=== PATIENT | female | born 1950 | race Caucasian/White ===

== ENCOUNTER → 2017-05-02 | Outpatient (CLI) | payer BC ==
[~2017-05-02] MED LIST: CHOL20007 PO; CYAN100020 SL; LORA-741 PO; MAGNESIUM PO; MULT-506 PO; TRAM-10 PO
[2017-05-02 12:25] LABS: BASO % 0.7 %; BASO ABS # 0.03 K/uL (0-0.2); COMPLETE YES; EOS % 2.4 %; HEMATOCRIT 36.2 % (37-47); LYMPH % 34.4 %; LYMPH ABS # 1.46 K/uL (1.2-3.4); MEAN CELL VOLUME 79.4 fL (80-100); MEAN CORPUSCULAR HEMOGLOBIN 24.8 pg (25-34); MEAN CORPUSCULAR HGB CONC 31.2 g/dl (32-36); MEAN PLATELET VOLUME 9.3 fL (7.4-10.4); MONO % 8.7 %; NEUT % 53.8 %; PLATELET COUNT 319 K/uL (130-400); RED BLOOD COUNT 4.56 M/uL (4.2-5.4); WHITE BLOOD COUNT 4.24 K/uL (4.8-10.8)
[2017-05-02 12:48] LABS: ESTIMATED AVERAGE GLUCOSE 120 mg/dl; HA1C FLAG Normal (Normal)
[2017-05-02 13:18] LABS: CHOLESTEROL/HDL RATIO 3.7
== END | disposition home or self-care (01) ==
LOC: C.LABBFT 08:25
PROVIDERS: ATTEND Internal Medicine
DX: E53.8 Deficiency of other specified B group vitamins (principal); D72.819 Decreased white blood cell count, unspecified; E78.5 Hyperlipidemia, unspecified; R73.03 Prediabetes

== ENCOUNTER → 2017-05-10 | Outpatient (CLI) | payer BC, OTHER ==
--- NOTE | 2017-05-10 13:50 | MAMMOGRAPHY REPORT ---
BILATERAL DIGITAL SCREENING MAMMOGRAM WITH CAD: 05/10/2017 CLINICAL HISTORY: Routine screening. Patient has no complaints. TECHNIQUE: Current study was also evaluated with a Computer Aided Detection (CAD) system. Bilateral CC and MLO and XCCL views were obtained. COMPARISON: Comparison is made to exams dated: 03/20/2016 mammogram, 03/12/2014 mammogram, 03/18/2015 ma mmogram, 01/15/2013 mammogram, 01/15/2012 mammogram, and 01/10/2011 mammogram - [facility]. BREAST COMPOSITION: There are scattered areas of fibroglandular density in both breasts. FINDINGS: There is a new ill-defined focal asymmetry within the left upper inner quadrant posteriorl y, for which spot compression tomosynthesis views and possible breast ultrasound are recommended for further evaluation. The remainder of both breasts are stable compared to prior exams, without suspicious masses, calcific ations, or areas of architectural distortion noted. Scattered bilateral benign-appearing calcificati ons are stable. Oval circumscribed benign-appearing 4.5 cm mass in the right 9:00 breast is stable c ompared to multiple prior exams. IMPRESSION: ACR BI-RADS CATEGORY 0: INCOMPLETE EVALUATION: NEED ADDITIONAL IMAGING EVALUATION Left upper inner quadrant focal asymmetry, for which additional imaging evaluation is recommended. T he patient will be called to schedule an appointment. Approximately 10% of breast cancers are not detected with mammography. A negative mammographic report should not delay biopsy if a clinically suggestive mass is present. Zeinab Tijerina M.D. ah/:05/10/2017 10:00:41 Director Electrical Engineering: Mela HOLDEN(Kurt)(Pradeep)(NALLELY), [facility] letter sent: Addl Imaging 0 BI-RADS Code: ACR BI-RADS Category 0: Incomplete Evaluation: Need Additional Imaging Evaluation
== END | disposition home or self-care (01) ==
LOC: C.MAMM 08:43
PROVIDERS: ATTEND Obstetrics & Gynecology
DX: Z12.31 Encounter for screening mammogram for malignant neoplasm of breast (principal); N64.89 Other specified disorders of breast; M81.0 Age-related osteoporosis without current pathological fracture

== ENCOUNTER → 2017-05-22 | Outpatient (CLI) | payer BC ==
--- NOTE | 2017-05-22 15:59 | MAMMOGRAPHY REPORT ---
UNILATERAL LEFT DIGITAL DIAGNOSTIC MAMMOGRAM TOMOSYNTHESIS WITH CAD AND TARGETED LEFT ULTRASOUND: 05/05 CLINICAL HISTORY: 66-year-old woman with no family history of breast cancer, called back for a new fo aidan asymmetry in the upper inner posterior left breast. Patient denies trauma. TECHNIQUE: Spot compression left CC and MLO 2-D digital and tomosynthesis images were obtained. Afte r placement of a skin BB, full-field left CC and MLO 2-D images were obtained. COMPARISON: Comparison is made to exams dated: 05/10/2017 mammogram, 03/20/2016 mammogram, 03/18/2015 ma mmogram, 03/12/2014 mammogram, 01/15/2013 mammogram, and 01/15/2012 mammogram - [facility]. BREAST COMPOSITION: The tissue of the left breast is heterogeneously dense, which may obscure small masses. FINDINGS: The spot compression views of the left breast demonstrate persistence of a vague 2.2 x 1.0 x 0.8 cm focal asymmetry in the upper inner far posterior aspect of the breast. No associated archi tectural distortion or microcalcification. Further evaluation with ultrasound was performed. Targeted ultrasound was performed in the upper inner quadrant of the left breast. There is a vague h ypoechoic prominent fat lobule in the 10:30 left breast. Initially, no other discrete solid or cysti c mass was identified. Then the patient pointed out a lump she has had in the 11:00 left breast, tez roximately 15 cm from the nipple. While ultrasounding over this lump, an epidermal inclusion cyst is identified, partially collapsed with a prominent punctum extending to the skin surface. It measures 10.1 x 2.3 x 10.8 mm. A skin BB was placed over this epidermal inclusion cyst and repeat 2-D full-f ield left CC and MLO views were obtained. There is alignment of the BB with the focal asymmetry, con firming mammographicsonographic correlation and also confirming benignity. IMPRESSION: ACR BI-RADS CATEGORY 2: BENIGN, TARGETED ULTRASOUND ACR BI-RADS CATEGORY 2: BENIGN The 2.2 cm focal asymmetry in the upper inner far posterior left breast correlates with a benign epid ermal inclusion cyst. There is no mammographic or targeted sonographic evidence of malignancy. Dameon mmend follow-up at time of next annual screening mammogram. Approximately 10% of breast cancers are not detected with mammography. A negative mammographic report should not delay biopsy if a clinically suggestive mass is present. Amy Leblanc M.D. ay/:05/22/2017 13:29:33 Roof Tile Layer: Leandra GARRISON)(Pradeep), [facility] letter sent: Normal 1/2 BI-RADS Code: ACR BI-RADS Category 2: Benign Ultrasound BI-RADS: ACR BI-RADS Category 2: Benign
== END | disposition home or self-care (01) ==
LOC: C.MAMM 12:17
PROVIDERS: ATTEND Obstetrics & Gynecology
DX: N64.89 Other specified disorders of breast (principal)

== ENCOUNTER 2017-08-28 06:19 | Inpatient (IN) | payer BC, OTHER ==
[2017-07-30 09:24] VITALS: BMI 38.0
--- NOTE | 2017-07-30 09:51 | PAT Medication Instructions ---
Service Date Jul 30, 2017. Current Home Medication List Cholecalciferol (Vitamin D3), 5,000 UNITS PO QAM Cyanocobalamin (Vitamin B12), 1,000 MCG SL QAM Multivitamin (Multivitamin), 1 TAB PO QAM Tramadol (Ultram), 50 MG PO PRN [Magnesium], 250 MG PO PRN Medication Instructions For Your Scheduled Surgery - Hold the following medications the morning of surgery: Cholecalciferol (Vitamin D3), 5,000 UNITS PO QAM Cyanocobalamin (Vitamin B12), 1,000 MCG SL QAM Multivitamin (Multivitamin), 1 TAB PO QAM [Magnesium], 250 MG PO PRN - Take the following medications the morning of surgery with a sip of water OTHERWISE NOTHING TO EAT OR DRINK AFTER MIDNIGHT: Tramadol (Ultram), 50 MG PO PRN (may take if needed up to 4 hours prior to surgery) Tylenol (may take if needed up to 4 hours prior to surgery) - Take the following medications as scheduled the night before surgery: Tramadol (Ultram), 50 MG PO PRN Tylenol If you have any questions please call us at [phone] or [phone] or [phone]
--- NOTE | 2017-07-30 10:52 | DIAGNOSTIC IMAGING REPORT ---
CHEST PREADMISSION(PA/LAT) CLINICAL HISTORY: 67 years-old Female presenting with preoperative assessment. TECHNIQUE: PA and lateral views of the chest were obtained. COMPARISON: None. FINDINGS: Cardiomediastinal silhouette normal. Lungs and pleural spaces clear. Degenerative changes of the thoracic spine. Degenerative changes of the acromioclavicular joints. Upper abdomen normal. IMPRESSION: 1. No acute cardiopulmonary disease. Electronically signed by: Ravindra Cota M.D. 07/30/2017 10:51 AM Dictated Date/Time: 07/30/2017 10:50 AM
[2017-07-30 11:10] LABS: BASO % 0.4 %; BASO ABS # 0.02 K/uL (0-0.2); COMPLETE YES; EOS % 1.4 %; HEMATOCRIT 37.1 % (37-47); IG% 0.2 %; LYMPH % 32.9 %; LYMPH ABS # 1.66 K/uL (1.2-3.4); MEAN CELL VOLUME 79.3 fL (80-100); MEAN CORPUSCULAR HEMOGLOBIN 24.6 pg (25-34); MEAN PLATELET VOLUME 9.3 fL (7.4-10.4); MONO % 7.5 %; NEUT % 57.6 %; PLATELET COUNT 321 K/uL (130-400); RED BLOOD COUNT 4.68 M/uL (4.2-5.4); WHITE BLOOD COUNT 5.04 K/uL (4.8-10.8)
[2017-07-30 11:30] LABS: PROTHROMBIN TIME (PATIENT) 10.4 SECONDS (9.0-12.0)
[2017-07-30 11:52] LABS: BLOOD UREA NITROGEN 15 mg/dl (7-18); BUN/CREATININE RATIO 20.2 (10-20); C-REACTIVE PROTEIN < 0.29 mg/dl (0-0.29); CALCIUM 8.9 mg/dl (8.5-10.1); CARBON DIOXIDE 28 mmol/L (21-32); CHLORIDE 106 mmol/L (98-107); CREATININE 0.72 mg/dl (0.60-1.20); GLUCOSE 90 mg/dl (70-99); POTASSIUM 4.3 mmol/L (3.5-5.1); SODIUM 140 mmol/L (136-145)
--- NOTE | 2017-08-23 22:43 | HISTORY & PHYSICAL EXAMINATION ---
DATE OF ADMISSION: 08/28/2017 CHIEF COMPLAINT: Bilateral knee pain, left side greater than right. HISTORY OF PRESENT ILLNESS: This is a 67-year-old female who presents for surgical treatment of her left knee. She has got a long history of bilateral knee pain and discomfort, left side bit worse than the right. She has been followed by my partner Dr. Godinez for the past 7 years. She has had injections which do help temporarily, but become less effective over time. She got constant pain. The more she walks, the more it hurts. She has nighttime discomfort. She would now like to proceed with surgical treatment. PAST MEDICAL HISTORY: Significant for obesity status post gastric bypass surgery in 2005 with 100 pound weight loss with residual BMI of 38. PAST SURGICAL HISTORY: Include: 1. Gastric bypass surgery. 2. Hysterectomy. ALLERGIES: KEFLEX WHICH CAUSES A RASH. CURRENT MEDICINES: Include: 1. Vitamin D. 2. Multivitamin. 3. Magnesium. 4. Zocor. SOCIAL HISTORY: A 67-year-old white female. She is . Lives by herself. She does not smoke. FAMILY HISTORY: Noncontributory. REVIEW OF SYSTEMS: Significant for history of obesity status post gastric bypass surgery. Denies any bleeding. No history of DVT or PE. She does have a history of cellulitis back in early 1999, nothing since then. No DVT or PE. PHYSICAL EXAMINATION: GENERAL: Reveals a healthy pleasant 67-year-old female who looks to be in good health. HEENT: Benign. NECK: Supple, no lymphadenopathy. LUNGS: Clear to auscultation. HEART: Regular rate and rhythm. ABDOMEN: Soft, nontender, nondistended. EXTREMITIES: Grossly neurovascularly intact except as follows. Examination of both legs reveal patient ambulates independently. Fairly large soft tissue envelope. She does walk with a bit of a waddling antalgic gait. She does not quite straighten her knees when she walks. Examination of the left knee reveals a large soft tissue envelope. Minimal effusion. Range of motion is 10-110. No instability. No pain with hip motion. Examination of the right knee reveals a fairly neutral alignment. Minimal knee effusion. Range of motion is 10-110. X-RAYS: X-rays of both knees were reviewed. It shows advanced bilateral knee DJD. She has complete loss of her medial joint space on both sides. Advanced patellofemoral disease as well. Some mild diffuse osteopenia. ASSESSMENT: A 67-year-old female status post gastric bypass surgery with advanced bilateral knee pain and degenerative joint disease. She has failed conservative treatment and would like to have her left knee replaced. PLAN: We are going to take her to the operating room and do a left total knee replacement. The risks and benefits of the procedure were explained to the patient including but not limited to DVT, PE, , infection, neurological injury, vascular injury, bleeding problem, pain, limited range of motion, stiffness, failure to relieve symptoms, incomplete relief of symptoms, need for further surgery in the future, fracture, leg length inequality, nerve palsy, etc. The patient understands and desires to proceed. Informed consent was obtained. She does have this reaction to Keflex. We will give her vancomycin preoperatively. As far as discharge plans, she is planning to be discharged to [facility]. She will then go to home with home health after that.
[~2017-08-28] VITALS: Ht 167.6 cm; Wt 106.2 kg
[2017-08-28] VITALS (10 sets, daily range): BP systolic 116–168; BP diastolic 73–110; PULSE 62–82; TEMP 36.5–36.8; O2SAT 93–100; Ht 167.6 cm; Wt 106.2 kg
[~2017-08-28 06:19] MED LIST changes: +ACETAMINOPHEN 500 MG TAB PO SCH; +BUPIVACAINE LIPOSOME 266 MG, BUPIVACAINE/EPINEPHRINE INJ 50 ML, SODIUM CHLORIDE 0.9% PF... INFIL SCH; +FAMOTIDINE 20 MG TAB PO SCH; +GABAPENTIN 300 MG CAP PO SCH; +LACTATED RINGER'S 1000ML 1,000 ML IV SCH; +LACTATED RINGER'S 1000ML IV SCH; +LACTATED RINGER'S 500 ML IV SCH; -LORA-741 PO; +METOCLOPRAMIDE HCL 10 MG TAB PO SCH; +SCOPOLAMINE 1.5 MG TDSY TD SCH; +VANCOMYCIN INJ 1,500 MG in SODIUM CHLORIDE 0.9% 500ML 500 ML IV ONE
[2017-08-28] MEDS ORDERED: TRANEXAMIC ACID INJ 1,000 MG in SODIUM CHLORIDE 0.9% 100ML 100 ML IV SCH ×2 (06:30→18:00)
[2017-08-28] MEDS ORDERED: BUPIVACAINE 0.5 % 5 MG/1 ML PF 10ML VIAL ONE (06:31)
--- NOTE | 2017-08-28 06:53 | History & Physical Bridge Note ---
H&P Re-Evaluation Bridge Note: I have examined the patient, reviewed the History & Physical and in the interval since the performance of the History & Physical I have noted the following changes of clinical significance: No changes noted
[2017-08-28] MEDS ORDERED: ATROPINE SULFATE 0.1 MG/ML 5ML SYR IV PRN (07:30)
[2017-08-28] MEDS ORDERED: FENTANYL CITRATE INJ 50 MCG/1 ML 2 ML VIAL IV PRN (07:30)
[2017-08-28] MEDS ORDERED: EpHEDrine SULFATE INJ 50 MG/ML AMP IV PRN (07:30)
[2017-08-28] MEDS ORDERED: ONDANSETRON INJ 2 MG/ML 2 ML VIAL IV PRN ×2 (07:30→12:00)
[2017-08-28] MEDS ORDERED: FENTANYL CITRATE INJ 50 MCG/1 ML 2 ML VIAL ONE (08:19)
[2017-08-28] MEDS ORDERED: MIDAZOLAM HCL 1 MG/ML 2ML VIAL ONE (08:19)
[2017-08-28] MEDS ORDERED: BUPIVACAINE/EPINEPHRINE 0.25% 1:200,000 30 ML VIAL ONE (09:56)
[2017-08-28] MEDS ORDERED: BACITRACIN 50000 UNIT VIAL ONE (09:56)
[2017-08-28] MEDS ORDERED: SODIUM CHLORIDE 0.9% PF 50 ML VIAL ONE (09:56)
[2017-08-28] MEDS ORDERED: BUPIVACAINE LIPOSOME 1/3% 266 MG/20 ML VIAL INFIL ONE (09:56)
[2017-08-28] MEDS ORDERED: PROPOFOL IV EMULSION 10 MG/ML 20 ML VIAL IV ONE (10:46)
--- NOTE | 2017-08-28 11:56 | [facility] Post Operative Brief Note ---
Immediate Operative Summary Operative Date Aug 28, 2017. Pre-Operative Diagnosis Left Knee Advanced Degenerative Joint Disease Post-Operative Diagnosis Left Knee Advanced Degenerative Joint Disease Procedure(s) Performed Left Total Knee Arthroplasty Surgeon Dr. Shelton Sonar Technician Surgeon(s) VINOD Guzman Estimated Blood Loss 50ML Findings Left Knee DJD Fluids (cc crystalloids) 1650 cc Specimens A. Left Knee Bone and Tissue Drains None Anesthesia Spinal Complication(s) None Disposition Recovery Room / PACU
[2017-08-28] MEDS ORDERED: SILVER SULFADIAZINE 1% CR 50 GM JAR EXT PRN (12:00)
[2017-08-28] MEDS ORDERED: ZOLPIDEM TARTRATE 5 MG TAB PO PRN (12:00)
[2017-08-28] MEDS ORDERED: BISACODYL 10 MG SUPP PR PRN (12:00)
[2017-08-28] MEDS ORDERED: ALUMINUM/MAGNESIUM/SIMETH (MAALOX MAX) 30 ML UDC PO PRN (12:00)
[2017-08-28] MEDS ORDERED: NO NSAIDS SCH (12:00)
[2017-08-28] MEDS ORDERED: MAGNESIUM 250 MG PO SCH (12:00)
[2017-08-28] MEDS ORDERED: METOCLOPRAMIDE HCL INJ 5 MG/ML 2 ML VIAL IV PRN (12:00)
[2017-08-28] MEDS ORDERED: MAGNESIUM HYDROXIDE SUSP 30 ML UDC PO PRN (12:00)
[2017-08-28] MEDS ORDERED: HYDROmorphone INJ 0.5 MG/0.5 ML SYR IV PRN (12:00)
--- NOTE | 2017-08-28 12:43 | DIAGNOSTIC IMAGING REPORT ---
L KNEE 2 VIEWS ROUTINE CLINICAL HISTORY: Postop examination COMPARISON: None. DISCUSSION: There are postsurgical changes of a total left knee arthroplasty and patellar resurfacing. The femoral and tibial components appear well seated. Overlying surgical drains are evident. There is air within soft tissues consistent with history of recent surgery. IMPRESSION: Postsurgical changes of a total left knee arthroplasty. Electronically signed by: Sanford Munguia M.D. 08/28/2017 12:42 PM Dictated Date/Time: 08/28/2017 12:41 PM
--- NOTE | 2017-08-28 12:55 | OPERATIVE REPORT ---
DATE OF OPERATION: 08/28/2017 SURGEON: Gopal Shelton MD DIRECTOR OF CONTRACTS: VINOD Ngo. PREOPERATIVE DIAGNOSIS: Left knee degenerative joint disease. POSTOPERATIVE DIAGNOSIS: Same. PROCEDURE PERFORMED: Left cemented posterior stabilized total knee arthroplasty. COMPLICATIONS: None. ESTIMATED BLOOD LOSS: 50 mL. FLUID REPLACEMENT: 1650 mL crystalloid fluid replacement. ANESTHESIA: Spinal with adductor canal block. DRAINS: None. SPECIMENS: Left knee sent for pathology. OPERATIVE INDICATIONS: The patient is a 67-year-old female who has had a long history of bilateral knee pain and discomfort, left side a bit worse than the right. She has been through extensive conservative treatment by my partner Dr. Godinez for the past 7 years. This has become less successful over time. She did continue to be debilitated by her knee pain and elected to proceed with operative treatment. OPERATIVE FINDINGS: Operative findings revealed advanced left knee DJD. She had grade 4 disease most extensively in the medial and patellofemoral compartments. She also had some focal grade 4 changes laterally. A moderate sized joint effusion. Large soft tissue envelope. She did have diffuse osteopenia, likely related to her gastric bypass surgery. OPERATIVE IMPLANTS: Operative implants consisted of: 1. Biomet Vanguard size 70 left posterior stabilized femoral component. 2. Biomet size 71 tibial tray. 3. A 14 mm posterior stabilized polyethylene insert. 4. A 31 x 8 all poly patella. OPERATIVE PROCEDURE: The patient taken to the operating room, identified and placed on the operating table in supine position. All contact areas were appropriately padded. IV antibiotics were provided by anesthesia team. A spinal anesthetic and adductor canal block had been provided in the holding area. Sue catheter was placed in sterile fashion. Left thigh tourniquet was then placed and left lower extremity was then prepped and draped in the usual sterile fashion. Left leg was elevated and exsanguinated with Esmarch and tourniquet was placed at 300 mmHg. An anterior approach to the left knee was then performed through a longitudinal incision centered over the patella. Sharp dissection was carried through the subcutaneous tissues down to the level of the extensor mechanism. A medial parapatellar arthrotomy incision was made. Some subperiosteal dissection was carried out medially. The fat pad was resected from beneath the patellar tendon. Lateral patellofemoral ligament was released. The patella was everted and knee was flexed. The osteophytes were taken off the distal femur. The ACL and PCL were then released from the distal femur and the tibia subluxated anteriorly. The external tibial alignment jig was then placed in the anterior face of the tibia and adjusted 14 mm medially. Proximal tibial cut was made to remove about 3 mm of bone from the medial side. The tibia was sized to a size 71. Attention was then drawn to the femur. The distal femur was entered with a sharp drill. The intramedullary canal was suctioned. A left 5-degree valgus cutting guide was placed. Distal femoral cutting block was pinned in place. Distal femoral cut was made to take an additional 3 mm of bone off the distal femur. The distal femoral cut was made. The femur was then sized to a 70. We did downsize this slightly. The AP cutting block was pinned parallel to the epicondylar axis, which was 5 degrees of external rotation. The anterior cut, anterior chamfer, posterior cut, posterior chamfer cuts were made. The box guide was placed and adjusted slightly lateral and the box cut was made. There was just a slight bit of overhang. The knee was then flexed. The remnants of the medial and lateral menisci were excised. The osteophytes were taken off the posterior aspect of the femur. Trial femoral component was placed. Tibial tray was pinned in maximum external rotation and the drill and stem punch were used to create defect in proximal tibia for the tibial tray. The knee was then trialed and the 14 mm insert fit most appropriately. Attention was then drawn to the patella. The patella was cleaned of all soft tissues. Patella thickness measured 23 mm in thickness and was cut down to 14. It was sized to a size 31 patella. I did leave the patella little thick due to her osteoporosis. The lug holes were drilled for the patella component. The lateral osteophyte was removed. Patella button was placed and the knee was taken through range of motion and the patella tracked nicely with no thumbs test. Attention was then drawn toward placement of the permanent components. All trial components were removed. A bone plug was placed in the distal femur to limit blood loss. A double batch of Palacos G cement was mixed. A left size 70 posterior stabilized femoral component, size 71 tibial tray, a 14 mm posterior stabilized polyethylene insert, and a 31 x 8 all poly patella then cemented in place. Knee was brought out into full extension until cement hardened. A final cement check was then performed. Pericapsular tissues were injected with a total of 100 mL of a combination of 20 mL of Exparel, 30 mL normal saline, 50 mL of 0.25% Marcaine with epinephrine. The patient did receive 1 gram of tranexamic acid. The tourniquet was then let down for final tourniquet time of 56 minutes. Hemostasis was assured with use of electrocautery. The wound was once again irrigated. The extensor mechanism was then closed with a combination of #1 PDS suture and #1 Vicryl suture in a [id number] fashion. Extensor mechanism was checked and found to be intact. The subcutaneous tissues were then closed with 2-0 Dexon suture in a buried interrupted fashion. Skin was closed with skin domo. Leg was then cleaned and dried and a sterile dressing of Xeroform, 4 x 4, sterile cast padding and Clovis bandage were applied. The patient then transferred to the recovery room in stable condition. The patient tolerated the procedure well with no complications. All needle and sponge counts were correct at the end of the operation. I attest to the content of the Intraoperative Record and any orders documented therein. Any exception s are noted below.
[2017-08-28] MEDS: D5W AND 1/2NSS + 20MEQ KCL 1,000 ML IV SCH ×2 (13:59→22:24)
[2017-08-28] MEDS: ACETAMINOPHEN 500 MG TAB PO SCH ×2 (14:01→21:24)
[2017-08-28] MEDS: CHECK SCOPOLAMINE PATCH PLACEMENT SCH ×2 (16:00→23:44)
[2017-08-28] MEDS: OXYCODONE HCL IR 5 MG TAB (IMMEDIATE RELEASE) PO PRN ×2 (16:31→23:44)
[2017-08-28] MEDS: FERROUS GLUCONATE 324 MG TAB PO SCH (18:19)
[2017-08-28] MEDS ORDERED: VANCOMYCIN INJ 1,500 MG in SODIUM CHLORIDE 0.9% 250ML 250 ML IV SCH (19:00)
[2017-08-28] MEDS ORDERED: VANCOMYCIN INJ 1,500 MG in SODIUM CHLORIDE 0.9% 500ML 500 ML IV SCH (19:00)
--- NOTE | 2017-08-28 19:17 | Anesthesiology Progress Note ---
Anesthesia Post Op Note Date & Time Aug 28, 2017 at 19:17 Vital Signs Pain Intensity: 6.0 Vital Signs Past 12 Hours Date Time Temp Pulse Resp B/P (MAP) Pulse Ox O2 Delivery O2 Flow Rate FiO2 08/28/17 16:00 36.8 69 18 146/95 (112) 96 Room Air 08/28/17 15:17 Room Air 08/28/17 15:14 36.5 14 160/91 (114) 99 Room Air 08/28/17 15:13 99 Room Air 08/28/17 15:01 36.5 62 16 130/88 (102) 99 Room Air 08/28/17 14:09 82 14 143/80 (101) 100 Room Air 08/28/17 13:30 71 16 149/97 (114) 96 Nasal Cannula 2.0 08/28/17 12:40 36.9 75 16 140/80 97 Room Air 08/28/17 12:30 36.9 69 16 130/82 98 Room Air 08/28/17 12:20 69 16 141/83 98 Room Air 08/28/17 12:10 76 12 120/86 98 Room Air 08/28/17 12:02 36.8 80 12 134/78 98 Room Air Notes Mental Status: alert / awake / arousable, participated in evaluation Pt Amnestic to Procedure: Yes Nausea / Vomiting: adequately controlled Pain: adequately controlled Airway Patency, RR, SpO2: stable & adequate BP & HR: stable & adequate Hydration State: stable & adequate Neuraxial Anesthesia: was administered, sensory block is resolving Anesthetic Complications: no major complications apparent
[2017-08-28] MEDS: ASPIRIN 325 MG ECTAB PO SCH (21:00)
[2017-08-28] MEDS: TAPENTADOL ER 50 MG TABCR PO SCH (21:23)
[2017-08-28] MEDS: SENNA 8.6 MG TAB PO SCH (21:23)
[2017-08-28] MEDS: DOCUSATE SODIUM 100 MG CAP PO SCH (21:23)
[2017-08-29] VITALS: O2SAT 99
[2017-08-29] MEDS: D5W AND 1/2NSS + 20MEQ KCL 1,000 ML IV SCH ×2 (02:28→08:55)
[2017-08-29 03:05] VITALS: BP 108/70; PULSE 71; TEMP 36.8; O2SAT 97
[2017-08-29] MEDS: ACETAMINOPHEN 500 MG TAB PO SCH ×3 (06:00→21:19)
[2017-08-29 06:06] LABS: HEMATOCRIT 29.9 % (37-47); MEAN CELL VOLUME 78.7 fL (80-100); MEAN CORPUSCULAR HEMOGLOBIN 23.7 pg (25-34); MEAN CORPUSCULAR HGB CONC 30.1 g/dl (32-36); MEAN PLATELET VOLUME 9.1 fL (7.4-10.4); PLATELET COUNT 225 K/uL (130-400)
[2017-08-29 06:31] LABS: CREATININE 0.69 mg/dl (0.60-1.20)
[2017-08-29 06:32] LABS: BUN/CREATININE RATIO 12.3 (10-20); CALCIUM 7.9 mg/dl (8.5-10.1)
[2017-08-29 07:51] VITALS: BP 135/83; PULSE 70; TEMP 36.8; O2SAT 97
[2017-08-29] MEDS: DOCUSATE SODIUM 100 MG CAP PO SCH ×2 (08:56→21:18)
[2017-08-29] MEDS: FERROUS GLUCONATE 324 MG TAB PO SCH ×3 (08:56→18:16)
[2017-08-29] MEDS: ASPIRIN 325 MG ECTAB PO SCH (08:56)
[2017-08-29] MEDS: MULTIVITAMIN TAB PO SCH (08:57)
[2017-08-29] MEDS: PANTOprazole SOD 40 MG TAB PO SCH (08:57)
[2017-08-29] MEDS: CYANOCOBALAMIN 500 MCG TAB (VIT B-12) PO SCH (08:57)
[2017-08-29] MEDS: CHOLECALCIFEROL 1000 INTER.UNIT TAB PO SCH (08:58)
[2017-08-29] MEDS: TAPENTADOL ER 50 MG TABCR PO SCH ×2 (08:59→21:18)
[2017-08-29] MEDS: CHECK SCOPOLAMINE PATCH PLACEMENT SCH ×2 (09:00→16:00)
[2017-08-29] MEDS ORDERED: MULTIVITAMIN TAB PO SCH (09:00)
[2017-08-29] MEDS: OXYCODONE HCL IR 5 MG TAB (IMMEDIATE RELEASE) PO PRN ×2 (09:09→18:18)
[2017-08-29 11:10] VITALS: BP 124/80; PULSE 70; TEMP 37.1; O2SAT 98
[2017-08-29 15:18] VITALS: BP 120/71; PULSE 81; TEMP 37.3; O2SAT 93
[2017-08-29] MEDS ORDERED: TRAM-10 PO (18:06)
[2017-08-29] MEDS ORDERED: ACET-24 PO (18:06)
[2017-08-29] MEDS ORDERED: FRRG PO (18:06)
[2017-08-29] MEDS ORDERED: XRL10 PO (18:06)
--- NOTE | 2017-08-29 18:08 | Discharge Instructions ---
Discharge Instructions Date of Service Aug 29, 2017. Admission Reason for Admission: Left Knee Degenerative Joint Disease Discharge Discharge Diagnosis / Problem: Left Knee Replacement Discharge Goals Goal(s): Decrease discomfort, Improve function, Increase independence, Improve disease control, Therapeutic intervention Activity Recommendations Activity Level: Assistance Required Therapies: Physical Therapy, Occupational Therapy Weightbearing Status: Left weightbearing . Additional Information Patient informed of condition: Yes Advance Directives: Yes DNR: No Level of Care: Skilled Communicable Disease: No Prognosis: Improving Instructions / Follow-Up Instructions / Follow-Up ACTIVITY RECOMMENDATIONS: Physical Therapy: * You will go to physical therapy three times each week for four to six weeks after your surgery in order to regain your knee range of motion and to retrain your knee to work properly. * It is just as important to make sure you are getting your knee perfectly straight as it is to regain your knee bend. * Taking a pain pill an hour before therapy can help you have a more productive and comfortable therapy session. Home Exercise: * You were shown a series of exercises (heel props, heel slides, etc.) in the hospital. Do these exercises three to four times each day including the exercises you were shown in physical therapy. Walking: * Get up and walk several times each day. For the first four weeks, try not to stand or walk for more than one hour at a time. If you do stand or walk for more than one hour, you will not hurt anything, but your knee and leg will likely swell. * As you feel comfortable, you may change from the walker or crutches to a cane and then to independent walking. MEDICATIONS: New Medicine: * You will likely be taking one or more of these medications: 1. Tramadol - A quick and shorter-acting pain medication. Take one to two tablets every four to six hours to lessen your pain. 2. Iron Sulfate - Take three times each day for the month after surgery to help you replace the blood lost during surgery. 3. Xarelto - Thins your blood to lessen the chance of forming a blood clot. * The most common side effects of pain medicine and iron are nausea and constipation. If nausea or constipation is too much of a problem or if you have any questions about your new medicines or doses, call [facility] at . We will try to help you manage these issues. VERY IMPORTANT TO READ AND REVIEW" Pain: * The immediate post-operative period after knee replacement surgery is often quite painful. * You are given a prescription for pain medicine. You should take it, as directed, when you need it, especially before physical therapy and before going to bed. Pain that interferes with sleep is very common and can last several months. * You will likely need pain medicine for the first four to six weeks. It will not stop all of the pain. The pain will lessen and as you feel better, you may change to milder pain medicine such as Tylenol. * The most common side effects of pain medicine are nausea and constipation, so don't take more than you need. SPECIAL CARE INSTRUCTIONS: TEDs/Elastic Stockings: * The white elastic stockings help limit swelling and prevent blood clots from forming in your legs. The more you wear them, the more they work. * Wear them for six weeks after knee replacement surgery and four weeks after partial knee replacement. Prevention of Infection: * Take antibiotics one hour before any dental cleaning, dental work, urological procedure, gastrointestinal procedure or any invasive surgery in order to prevent your new joint from getting infected. * You may get the antibiotics from the doctor performing the procedure or you may call our office at before and we will call in a prescription to the pharmacy of your choice. Things to Watch For: * Drainage from the incision site that occurs more than one week after your surgery. * Severely increased knee/leg pain or swelling. * Increased redness at the incision site. * Fever above 102 degrees Fahrenheit. * Unusual chest pain or shortness of breath. * Unusual pain or burning with urination. Call [facility] at with any of the above problems or if you have any questions about your medicines or recovery. FOLLOW UP VISIT: Make an appointment to see your doctor for approximately two weeks after surgery for a progress check and staple removal by calling the office at . Current Hospital Diet Patient's current hospital diet: Regular Diet Discharge Diet Recommended Diet: Regular Diet Procedures Procedures Performed: Left Total Knee Arthroplasty Pending Studies Studies pending at discharge: no Medical Emergencies . Who to Call and When: Medical Emergencies: If at any time you feel your situation is an emergency, please call [phone] immediately. . Non-Emergent Contact Non-Emergency issues call your: Surgeon . . "Provider Documentation" section prepared by Gopal Shelton. . Core Measure Problem Core Measures: None
--- NOTE | 2017-08-29 18:10 | PROGRESS NOTE ---
DATE: 08/29/2017 SUBJECTIVE: A 67-year-old white female, postop day #1 from left knee replacement. Pretty tough morning but doing better now. Lot of kind of quad pain initially. No chest pain or shortness of breath. Not feeling dizzy or lightheaded. In much better spirits now. OBJECTIVE: VITAL SIGNS: Temperature 37.3. Vital signs stable. PHYSICAL EXAMINATION: GENERAL: This is a pleasant elderly female. She is sitting up in bed and looks pretty comfortable. EXTREMITIES: Examination of the left leg reveals the leg to be well aligned. Dressing is clean, dry and intact. She can dorsiflex and plantarflex her foot appropriately. She is neurologically intact. LABORATORY DATA: Hemoglobin 9.0. Hematocrit 29.9. Electrolytes are stable. ASSESSMENT: A 67-year-old white female, postop day #1 from left total knee replacement. She is doing pretty well. Pain is under better control. She did have gastric bypass surgery and really does want to take aspirin. We talked previously about taking Xarelto. PLAN: 1. DVT prophylaxis including thigh-high TEDs, SCDs, will stop the aspirin and use Xarelto. 2. PT/OT. She can weightbear as tolerated. Left total knee protocol. 3. Pain control, doing better with current pain regimen. 4. Disposition: Plan to discharge her to the [facility] once medically stable.
[2017-08-29] MEDS: SENNA 8.6 MG TAB PO SCH (21:18)
[2017-08-29 23:54] VITALS: BP 132/75; PULSE 82; TEMP 36.9; O2SAT 95
[2017-08-30] MEDS: OXYCODONE HCL IR 5 MG TAB (IMMEDIATE RELEASE) PO PRN ×2 (05:36→12:18)
[2017-08-30] MEDS: ACETAMINOPHEN 500 MG TAB PO SCH ×2 (05:36→13:54)
[2017-08-30] MEDS: FERROUS GLUCONATE 324 MG TAB PO SCH ×2 (07:40→12:14)
[2017-08-30] MEDS: CHECK SCOPOLAMINE PATCH PLACEMENT SCH ×2 (07:40)
[2017-08-30] MEDS: MULTIVITAMIN TAB PO SCH (07:41)
[2017-08-30] MEDS: TAPENTADOL ER 50 MG TABCR PO SCH (07:41)
[2017-08-30] MEDS: DOCUSATE SODIUM 100 MG CAP PO SCH (07:41)
[2017-08-30] MEDS: PANTOprazole SOD 40 MG TAB PO SCH (07:41)
[2017-08-30] MEDS: CYANOCOBALAMIN 500 MCG TAB (VIT B-12) PO SCH (07:42)
[2017-08-30] MEDS: CHOLECALCIFEROL 1000 INTER.UNIT TAB PO SCH (07:42)
[2017-08-30] MEDS ORDERED: RIVAROXABAN 10 MG TAB PO SCH (09:00)
--- NOTE | 2017-08-30 09:41 | PROGRESS NOTE ---
DATE: 08/30/2017 SUBJECTIVE: A 67-year-old white female postop day 2 from a left knee replacement. She is doing better. Still have some intermittent bouts of pretty significant pain in her quad area. She looks pretty comfortable. Denies any chest pain or shortness of breath. Not feeling dizzy or lightheaded. OBJECTIVE: VITAL SIGNS: Temperature 36.9. Vital signs stable. PHYSICAL EXAMINATION: GENERAL: Reveals a pleasant elderly female. She is sitting up in bed and looks quite comfortable. EXTREMITIES: Examination of the left leg reveals it to be well aligned. Dressing is clean, dry and intact. Thigh is soft and supple. Calf is soft and supple. She is neurologically intact. ASSESSMENT: A 67-year-old white female postop day 2 from left knee replacement, doing pretty well. Her pain has been reasonably well controlled. PLAN: 1. DVT prophylaxis including thigh-high TEDs, SCDs and we are going to use Xarelto. She cannot take aspirin due to gastric bypass surgery. 2. PT/OT. Weightbearing as tolerated. Left total knee protocol. 3. Pain control, doing pretty well with current pain regimen. She does not tolerate meds as well but we will encourage her to take some for the first 2 weeks. 4. Disposition: She is hoping to be discharged [facility] later today if accepted/approved. RAMAKRISHNA
[2017-08-30 14:20] VITALS: BP 132/75; PULSE 82; TEMP 36.9; O2SAT 95
--- NOTE | 2017-09-03 15:30 | DISCHARGE SUMMARY ---
ADMITTING PHYSICIAN AND SURGEON: Dr. Shelton. ADMITTING DIAGNOSIS: Left knee degenerative joint disease. SURGERY PERFORMED: Left total knee arthroplasty. SECONDARY DIAGNOSES: Obesity with history of gastric bypass surgery. CONSULTS: None obtained. HISTORY AND PHYSICAL EXAMINATION: Well documented in the patient's chart. HOSPITAL COURSE: The patient admitted on 08/28/2017 underwent total knee arthroplasty, tolerated the procedure well. There were no complications. She was transferred to PACU postoperatively and later to the orthopedic floor for further care. She was given vancomycin for antibiotic prophylaxis, NICOLE stockings, SCDs and aspirin initially for DVT prophylaxis. The aspirin was discontinued and she was given Xarelto for continued DVT prophylaxis. Her hemoglobin, hematocrit and vital signs were monitored during her hospital stay and remained stable. She developed some postoperative anemia with hemoglobin 9. She did not require any blood transfusions. There were no complications. By postoperative day 2, she was tolerating a regular diet, pain was controlled with oral pain medicine. She was participating in physical therapy and had no signs or symptoms of deep vein thrombosis. On postop day 2, she was discharged home and set up with home health services. She was given printed discharge instructions including a new prescriptions for extra strength Tylenol, iron supplement and Xarelto. She was instructed to continue her home medications. She was given new as well for tramadol for pain. Continue physical therapy, weightbearing as tolerated. NICOLE stockings and follow up in 10-12 days or sooner if there are any problems or concerns.
== END 2017-08-30 16:15 | disposition home health service (06) | DRG 470 ==
LOC: C.ACU 06:19 → C.3E 06:40 → ENRESERV 12:29
PROVIDERS: ADMIT Orthopaedic Surgery Sports Medicine; ATTEND Orthopaedic Surgery Sports Medicine
PROC: 0SRD0J9 Replacement of Left Knee Joint with Synthetic Substitute, Cemented, Open Approach (ICD-10-PCS; principal; 2017-08-28 08:50)
DX: M17.12 Unilateral primary osteoarthritis, left knee (principal); E66.9 Obesity, unspecified; Z98.84 Bariatric surgery status; Z68.37 Body mass index [BMI] 37.0-37.9, adult

== ENCOUNTER → 2018-06-10 | Outpatient (CLI) | payer BC ==
[~2018-06-10] MED LIST changes: +ACET-24 PO; -ACETAMINOPHEN 500 MG TAB PO SCH; -BUPIVACAINE LIPOSOME 266 MG, BUPIVACAINE/EPINEPHRINE INJ 50 ML, SODIUM CHLORIDE 0.9% PF... INFIL SCH; -FAMOTIDINE 20 MG TAB PO SCH; +FRRG PO; -GABAPENTIN 300 MG CAP PO SCH; -LACTATED RINGER'S 1000ML 1,000 ML IV SCH; -LACTATED RINGER'S 1000ML IV SCH; -LACTATED RINGER'S 500 ML IV SCH; -METOCLOPRAMIDE HCL 10 MG TAB PO SCH; -SCOPOLAMINE 1.5 MG TDSY TD SCH; -VANCOMYCIN INJ 1,500 MG in SODIUM CHLORIDE 0.9% 500ML 500 ML IV ONE; +XRL10 PO
[2018-06-10 12:51] LABS: HEMATOCRIT 38.6 % (37-47); HEMOGLOBIN 12.1 g/dL (12.0-16.0); MEAN CELL VOLUME 79.4 fL (80-100); MEAN CORPUSCULAR HEMOGLOBIN 24.9 pg (25-34); MEAN CORPUSCULAR HGB CONC 31.3 g/dl (32-36); MEAN PLATELET VOLUME 9.8 fL (7.4-10.4); PLATELET COUNT 302 K/uL (130-400); RED CELL DISTRIBUTION WIDTH CV 14.9 % (11.5-14.5); RED CELL DISTRIBUTION WIDTH SD 43.3 fL (36.4-46.3); WHITE BLOOD COUNT 4.08 K/uL (4.8-10.8)
== END | disposition home or self-care (01) ==
LOC: C.LABBC 10:06
PROVIDERS: ATTEND Orthopaedic Surgery Sports Medicine
DX: M25.569 Pain in unspecified knee (principal)

== ENCOUNTER 2021-06-21 06:22 | Observation (INO) ==
--- NOTE | 2021-05-10 16:43 | PAT Medication Instructions ---
Medication Instructions Date of Service May 10, 2021 Home Medications Medication Instructions Recorded rosuvastatin 10 mg tablet 10 mg PO QPM #90 tab 08/03/20 tramadol 50 mg tablet 50 mg PO Q6 PRN #50 tab 12/14/20 cyanocobalamin (vitamin B-12) 500 mcg tablet 1,000 mcg PO QAM ergocalciferol (vitamin D2) 50 mcg (2,000 unit) tablet 5,000 units PO QAM rosuvastatin 10 mg tablet 10 mg PO QPM tramadol 50 mg tablet 50 mg PO Q6 PRN acetaminophen [Tylenol Arthritis] 1,300 mg PO Q8H PRN ferrous sulfate 325 mg PO QAM metformin 500 mg PO QAM DO NOT take the morning of surgery cyanocobalamin (vitamin B-12) 500 mcg tablet 1,000 mcg PO QAM ergocalciferol (vitamin D2) 50 mcg (2,000 unit) tablet 5,000 units PO QAM ferrous sulfate 325 mg PO QAM metformin 500 mg PO QAM Take morning of surgery With a small sip of water, OTHERWISE NOTHING TO EAT OR DRINK AFTER MIDNIGHT: tramadol 50 mg tablet 50 mg PO Q6 PRN (okay to take up to 4 hours prior to surgery if needed) acetaminophen [Tylenol Arthritis] 1,300 mg PO Q8H PRN (okay to take up to 4 hours prior to surgery if needed) Take evening before surgery rosuvastatin 10 mg tablet 10 mg PO QPM tramadol 50 mg tablet 50 mg PO Q6 PRN (if needed) acetaminophen [Tylenol Arthritis] 1,300 mg PO Q8H PRN (if needed) Other Notes If you have any questions please call us at [phone] or [phone] or [phone] or [phone]
--- NOTE | 2021-05-12 13:04 | Anesthesiology Consultation ---
Date of Service May 12, 2021 Assessment & Plan (1) Encounter for pre-operative examination: Chart Review Chart Review: Acceptable Risk for Surgery (pending preop Covid testing ) and Patient seen in Pre Admission Testing - Check BSG AM DOS Per PAT appt on 05/12/21, patient denies any travel or large group activities. Wears mask when required. Pt vaccinated for Covid. No known Covid positive contacts or Covid related symptoms. No known Covid infection in the past 90 days . Preop Covid testing scheduled 06/17/21= will await results. Educated on importance of self quarantining, social distancing and wearing mask in public both for the patient after Covid testing done History Surgery Operation Date: 06/21/21 08:50 Proposed Procedures p Right Total Knee Replacement - Gopal Shelton MD Height/Weight Height: 5 ft 5 in Weight: 105.5 kg Allergies Allergy/AdvReac Type Severity Reaction Status Date / Time cephalexin [From Keflex] Allergy Mild Rash Verified 05/04/21 08:26 Cephalosporins Allergy Unknown rash with Verified 05/04/21 07:59 keflex ketorolac Allergy Unknown KIDNEY Verified 05/04/21 07:59 STARTED TO SHUT DOWN lisinopril Allergy Unknown RACING Verified 05/04/21 07:59 HEART Medications Home Medications Medication Instructions Recorded Confirmed Last Taken cyanocobalamin (vitamin B-12) 500 1,000 mcg PO QAM tab 11/23/19 05/04/21 Unknown mcg tablet ergocalciferol (vitamin D2) 50 mcg 5,000 units PO QAM tab 12/09/19 05/04/21 Unknown (2,000 unit) tablet rosuvastatin 10 mg tablet 10 mg PO QPM #90 tab 08/03/20 05/04/21 Unknown tramadol 50 mg tablet 50 mg PO Q6 PRN #50 tab 12/14/20 05/04/21 Unknown acetaminophen [Tylenol Arthritis] 1,300 mg PO Q8H PRN 05/04/21 05/04/21 Unknown ferrous sulfate 325 mg PO QAM 05/04/21 05/04/21 Unknown metformin 500 mg PO QAM 05/04/21 05/04/21 Unknown Past Medical History Medical History (Updated 05/13/21 @ 09:00 by Carolina Bustos PA-C) Anemia HX-ON IRON SUPPLEMENTS Cardiac murmur Currently has heart murmur. Does not follow with cardiology ECHO done 2019 showed no significant heart valve issues Essential tremor hands High cholesterol Hypertension Insomnia Obesity s/p gastric bypass Osteoporosis Pre-diabetes Does not check glucose On Metformin Exercise / Class Metabolic Activity II 4-5 Yardwork/Stairs/Walk up hill (one flight of stairs - no chest pain or SOB ) Past Family History Family History Grandmother Ovarian cancer Mother Diabetes CHF (congestive heart failure) Grandmother (Paternal) Diabetes Aunt Diabetes Uncle Diabetes Brother Diabetes Grandfather (Paternal) Coronary heart disease Sister Diabetes Denies family history of Prostate cancer Myocardial infarction Breast cancer Colorectal cancer Past Surgical History Surgical History History of colonoscopy History of esophagogastroduodenoscopy (EGD) History of gastric bypass 2005 History of left knee replacement History of total hysterectomy with removal of both tubes and ovaries History of tubal ligation Past Anesthesia History No Hx of Anesthesia Complications and No Family Hx of Anesthesia Complications History of PONV No Hx of PONV and No Hx of Motion Sickness Social History Smoking Status: Never smoker Do You Dip or Chew Tobacco: No Hx Alcohol Use: Yes Alcohol type: wine alcohol intake frequency: a few times a month Hx Substance Use: No Review of Systems Patient denies chest pain, shortness of breath, dyspnea on exertion, reflux, cough, wheezing, palpitations. No hx of seizures, stroke, OH, apnea/snoring. No hx of blood clots or blood transfusions Physical Exam Vital Signs VITALS BP 140/85 P 68 TEMP 98.3 SP02 96% RESP 16 Constitutional no acute distress ENMT Mouth: no TMJ clicking Thyromental Distance: > or= 3.5 Finger Breadths (3.5) Mallampati Class: III Permanent right upper bridge (permanent) Missing molars Crowns to molars Neck neck extension not limited Respiratory normal respiratory effort; no respiratory distress Auscultation: lungs clear to auscultation bilaterally; no wheezes Cardiovascular Rate/Rhythm: regular rate and regular rhythm Heart Sounds: + murmur (III/ murmur ) Vessels: no carotid bruit Musculoskeletal Spine: no pain with cervical ROM Extremities: extremities normal to inspection Psychiatric Orientation: alert Lab Results Anesthesia Preop Results Results Anesthesia Widget: WBC 4.65 K/uL (4.8-10.8) L 05/03/21 Hgb 14.1 g/dL (12.0-16.0) 05/03/21 Hct 44.5 % (37-47) 05/03/21 Plt 289 K/uL (130-400) 05/03/21 Na 141 mmol/L (136-145) 05/12/21 K 4.0 mmol/L (3.5-5.1) 05/12/21 Cl 110 mmol/L (98-107) H 05/12/21 CO2 29 mmol/L (21-32) 05/12/21 BUN 13 mg/dl (7-18) 05/12/21 Creat 0.72 mg/dl (0.6-1.2) 05/12/21 Glucose Level 96 mg/dl (70-99) 05/12/21 PT 10.6 Seconds (9.0-12.0) 05/12/21 PTT 25.1 Seconds (21.0-31.0) 05/12/21 INR 1.0 (0.9-1.1) 05/12/21 HA1c 5.7 % (4.5-5.6) H 05/03/21 Blood Type A Positive 05/12/21 Antibody Screen NEGATIVE 05/12/21 Testing Electrocardiogram Date: 05/12/21 Findings: + NSR @ (61bpm) Normal EKG per cardio Chest X-Ray Date: 05/12/21 Findings: + NAD Echocardiogram Date: 12/15/19 EF: 55-60% LV Function: normal RWMA: + none Other Findings: + LVH (Mild/concentric) and + diastolic dysfunction (Grade 1) Left [facility] mildly dilated. Right [facility] mildly dilated. Mild MR. Mild TR. Compared to study from 12/11/2014no significant changes found.
--- NOTE | 2021-06-14 23:16 | History and Physical Report ---
CHIEF COMPLAINT: Persistent right knee pain, discomfort, and stiffness. HISTORY OF PRESENT ILLNESS: A 71-year-old female who is now about 4 plus years out from her left kne e replacement. She struggled with this at times, but has gradually become more happy with it over ti me. She has developed increased pain and discomfort in her right knee. She has been through extensi ve conservative treatments, which have become less successful over time. She uses a cane intermitten tly due to her pain. It is global pain. She says the more she is up on it, the more it hurts. She limps more as the day goes on. She would like to proceed with right knee replacement. PAST MEDICAL HISTORY: 1. Obesity, status post gastric bypass surgery in 2005. 2. Diabetes with an A1c of 5.7. 3. Heart murmur. 4. Low back pain/sciatica. PAST SURGICAL HISTORY: Include, 1. Left knee replacement done on August 28, 2017. 2. Hysterectomy. 3. Gastric bypass surgery in September 2006. ALLERGIES: KEFLEX, TORADOL, AND PRINIVIL. CURRENT MEDICATIONS: 1. Vitamin B12. 2. Vitamin D. 3. Iron pills. 4. Cholesterol medicine. 5. Rosuvastatin. 6. Propranolol. SOCIAL HISTORY: A 71-year-old female. She lives by herself in [place]. Her . She does not smoke. No significant alcohol intake. FAMILY HISTORY: Noncontributory. REVIEW OF SYSTEMS: Significant for some recently diagnosed diabetes with a pretty well controlled A1 c. No chest pain or shortness of breath. No history of DVT or PE. PHYSICAL EXAMINATION: GENERAL: Shows a pleasant middle-aged female, who looks to be in reasonably good health. HEENT: Benign. NECK: Supple, no lymphadenopathy. LUNGS: Clear to auscultation. HEART: Has a regular rate and rhythm. ABDOMEN: Soft, nontender, nondistended. EXTREMITIES: Grossly neurovascularly intact except as follows: Examination of the right knee reveal s the patient walks using a cane. She has got fairly large soft tissue envelope. Fairly neutral ali gnment to her knee. The knee is pretty stiff with about a 10-degree flexion contracture and can bend about 105 degrees. No instability. No pain with hip motion. Examination of the left knee reveals a well-healed incision. She has got anatomic alignment. No knee effusion. A large soft tissue enve kehinde. Range of motion is 0 to 120. Good straight leg raise. X-RAYS: X-rays of the right knee reviewed. It shows advanced right knee degenerative joint disease. She has got tricompartment disease, worse on the medial side. She has got diffuse osteopenia. Her left knee replacement looks to be in good position without signs of problems. ASSESSMENT: A 71-year-old female 4 plus years out from a left knee replacement with advanced right k nee degenerative joint disease. She has failed conservative treatment. She would like to have her r ight knee fixed. PLAN: We will take her to the operating room and do a right total knee replacement. The risks and b enefits of this procedure were explained to the patient to include, but not limited to DVT, PE, , infection, neurological injury, vascular injury, bleeding problem, pain, limited range of motion, s tiffness, failure to relieve her symptoms, incomplete relief of symptoms, need for further surgery in the future, fracture, leg length inequality, nerve palsy, etc. The patient understands and desires to proceed. Informed consent was obtained. She does have allergy to Keflex and we will give her vancomycin preoperatively. She is hoping to be discharged to [facility] for a brief rehab stay as she lives by herself. Job ID: [id number]
[~2021-06-21 06:22] MED LIST changes: -ACET-24 PO; +ACETAMINOPHEN 500 MG TAB PO SCH; +BUPIVACAINE LIPOSOME/PF 266 MG, BUPIVACAINE/EPINEPHRINE 50 ML, SODIUM CHLORIDE 0.9% 30 ... INFIL SCH; -CHOL20007 PO; -CYAN100020 SL; +FAMOTIDINE 20 MG TAB PO SCH; -FRRG PO; +GABAPENTIN 300 MG CAP PO SCH; +LR 500ML BOLUS, THEN 15ML/HR IV SCH; +LR 60ML/HR IV SCH; -MAGNESIUM PO; +METOCLOPRAMIDE HCL 10 MG TABLET PO SCH; -MULT-506 PO; +Scopolamine 1 MG TDSY TD SCH; -TRAM-10 PO; +TRANEXAMIC ACID 1,000 MG **IV Intra-op IV SCH; +VANCOMYCIN HCL 1,500 MG in SODIUM CHLORIDE 0.9% 500 ML IV SCH; -XRL10 PO
[2021-06-21] MEDS ORDERED: BUPIVACAINE 0.5 % 5 MG/1 ML PF 10ML VIAL ONE (06:33)
[2021-06-21] MEDS ORDERED: DEXAMETHASONE SOD INJ 4 MG/ML VIAL ONE (06:33)
[2021-06-21] MEDS ORDERED: BUPIVACAINE 0.25% 30 ML VIAL ONE ×2 (06:33→08:55)
[2021-06-21] MEDS ORDERED: EPINEPHrine INJ 1 MG/ML AMP ONE ×2 (06:33→08:55)
--- NOTE | 2021-06-21 06:53 | History & Physical Bridge Note ---
Date of Service June 21, 2021 History & Physical Bridge Note I have examined the patient, reviewed the History & Physical and in the interval since the performance of the History & Physical I have noted the following changes of clinical significance: no changes noted
[2021-06-21] MEDS ORDERED: MIDAZOLAM HCL 1 MG/ML 2ML VIAL ONE (07:11)
[2021-06-21] MEDS ORDERED: fentaNYL citrate 100 MCG/2 ML VIAL ONE (07:11)
[2021-06-21] MEDS ORDERED: BUPIVACAINE LIPOSOME 1.3% 266 MG/20 ML VIAL ONE (08:55)
[2021-06-21] MEDS ORDERED: SODIUM CHLORIDE 0.9% PF 50 ML VIAL ONE (08:55)
[2021-06-21] MEDS ORDERED: fentaNYL citrate 100 MCG/2 ML VIAL IV PRN (09:11)
[2021-06-21] MEDS ORDERED: ePHEDrine sulfate 50 MG/ML AMP IV PRN (09:11)
[2021-06-21] MEDS ORDERED: PROMETHAZINE HCL 6.25 MG in SODIUM CHLORIDE 0.9% 50 ML IV PRN (09:11)
[2021-06-21] MEDS ORDERED: ONDANSETRON INJ 2 MG/ML 2 ML VIAL IV PRN ×2 (09:11→13:22)
[2021-06-21] MEDS ORDERED: ATROPINE SULFATE 0.1 MG/ML 10ML SYR IV PRN (09:11)
[2021-06-21] MEDS ORDERED: PROPOFOL IV EMULSION 10 MG/ML 20 ML VIAL IV ONE ×3 (09:32→10:23)
--- NOTE | 2021-06-21 12:18 | Anesthesiology Progress Note ---
Date of Service June 21, 2021 Anesthesia Post Procedure Vital Signs Vital Signs: Temp Pulse Pulse Resp BP Pulse Ox 06/21/21 12:00 36.8 C 66 18 136/77 98 06/21/21 11:40 68 15 130/72 100 06/21/21 11:30 71 14 126/73 100 06/21/21 11:23 36.5 C 72 18 114/67 99 06/21/21 08:00 36.4 C L 66 18 159/90 H 98 06/21/21 06:49 36.6 C 63 20 188/90 H 98 Transfer of Care Handoff Completed per policy Notes Mental Status: alert / awake / arousable Patient Amnestic to Procedure: Yes Nausea / Vomiting: adequately controlled Pain: adequately controlled Airway Patency, RR, SpO2: stable & adequate BP & HR: stable & adequate Hydration State: stable & adequate Neuraxial Anesthesia: was administered and sensory block is resolving Anesthetic Complications: no major complications apparent and Pt Satisfied with anesthetic care
--- NOTE | 2021-06-21 12:20 | XRay Report ---
RIGHT KNEE 2 VIEWS History: Right total knee arthroplasty. Degenerative arthritis. Postop. FINDINGS: The patient is status post a right total knee arthroplasty. The hardware is intact. No frac ture or dislocation. Skin domo are in place. IMPRESSION: Right total knee arthroplasty. No evidence for hardware complication. ACT 112: Negative or not required by law. Electronically signed by: Dg Sandoval M.D. 06/21/2021 12:18 PM
[2021-06-21] MEDS ORDERED: METOCLOPRAMIDE HCL INJ 5 MG/ML 2 ML VIAL IV PRN (13:22)
[2021-06-21] MEDS ORDERED: PHARMACY GLYCEMIC MGMT CONSULT PRN (13:22)
[2021-06-21] MEDS ORDERED: bisacodyL 10 MG SUPP PR PRN (13:22)
[2021-06-21] MEDS ORDERED: NALOXONE HCL 0.4 MG/1 ML VIAL/CARP IV PRN (13:22)
[2021-06-21] MEDS ORDERED: ALUMINUM/MAGNESIUM SUSP 30 ML UDC PO PRN (13:22)
[2021-06-21] MEDS ORDERED: VANCOMYCIN CONSULT ACTIVE PRN (13:22)
[2021-06-21] MEDS ORDERED: oxyCODONE HCL IR 5 MG TAB (IMMEDIATE RELEASE) PO PRN (13:22)
[2021-06-21] MEDS ORDERED: MAGNESIUM HYDROXIDE SUSP 30 ML UDC PO PRN (13:22)
[2021-06-21] MEDS ORDERED: HYDROmorphone INJ 0.5 MG/0.5 ML SYR IV PRN (13:22)
--- NOTE | 2021-06-21 13:59 | Pharmacy Report ---
Pharmacy Glycemic Short Note 2 - Date of Service June 21, 2021 - Glycemic Short BSG Results (Last 24 hours): 06/21/21 06/21/21 07:19 11:28 POC Glucose 99 102 H OUTPATIENT ANTIDIABETIC REGIMEN: * METFORMIN 500 MG ER QAM * a1c 5.7% 05/03/21 ASSESSMENT: * Admitted POD #0 right total knee arthroplasty * BSGs 99-102 mg/dL preop, a1c 5.7% on metformin, do not anticipate high insulin needs, will start novolog between weight based stress of 2 and 3 * Will put on scale for lantus if needed PLAN FOR INPATIENT GLYCEMIC CONTROL: * Hold outpatient oral diabetes medications * Basal insulin * Lantus 0-10 units SQ HS * Bolus insulin * NovoLog per scale ACHS or Q6hrs while NPO * Goal Range: Low 110 mg/dL - High 140 mg/dL * Correction Factor: 20 mg/dL/unit * Nutritional / Prandial insulin per carb ratio of 1 unit per 12 grams CHO consumed
[2021-06-21] MEDS ORDERED: GLUCOSE 40% GEL 15 GM TUBE PO PRN (14:00)
[2021-06-21] MEDS ORDERED: GLUCOSE 10 TABS/TUBE PO PRN (14:00)
[2021-06-21] MEDS ORDERED: DEXTROSE 50% 50 ML SYRINGE IV PRN (14:00)
[2021-06-21] MEDS ORDERED: GLUCAGON FOR INJ 1 MG VIAL SQ PRN (14:00)
[2021-06-21] MEDS ORDERED: CARBOHYDRATES FOR HYPOGLYCEMIA PO PRN (14:00)
[2021-06-21] MEDS: SODIUM CHLORIDE 0.9% 1000ML 1,000 ML IV SCH ×2 (14:04→20:29)
[2021-06-21] MEDS: KETOROLAC TROMETHAMINE 15 MG/ML VIAL IV SCH ×2 (14:04→19:04)
[2021-06-21] MEDS: ACETAMINOPHEN 500 MG TAB PO SCH ×2 (14:04→22:01)
[2021-06-21] MEDS: Scopolamine CHECK PATCH PLACEMENT SCH ×2 (16:47→23:20)
[2021-06-21] MEDS ORDERED: TRANEXAMIC ACID / 0.7% NACL 1,000 MG/100 ML BAG IV SCH (17:30)
[2021-06-21] MEDS: ASCORBIC ACID 500 MG TAB PO SCH (17:30)
[2021-06-21] MEDS: INSULIN ASPART 100 UNITS/ML 3 ML PEN SC SCH ×2 (17:31→21:41)
--- NOTE | 2021-06-21 18:33 | Operative Report ---
Post Operative Report Pre & Post Diagnosis Operation Date: 06/21/21 08:50 Pre-Op Diagnosis: Right Knee Osteoarthritis Post-Op Diagnosis: Right Knee Osteoarthritis I identified the patient and participated in the time-out.: Yes Procedure Operation Date: 06/21/21 08:50 Actual Procedures p Right Total Knee Replacement(Right) - Gopal Shelton MD Surgeon Gopal Shelton MD Ingot Stripper REHANA Phillips Estimated Blood Loss 50 Findings Consistent with Post-Op Diagnosis Operative findings revealed advanced right knee tricompartment DJD. She had extensive grade 4 [id number] disease in all 3 compartments most severe in the medial side. She had osteophytes in all 3 compartments. Moderate-sized joint effusion. Large soft tissue envelope. Diffuse osteopenia. Fluids 600 cc Specimens Right knee sent for pathology. Drains None. Anesthesia Type Spinal MAC Complications none Disposition Accompanied Patient To Recovery: No Indications Patient is a 71-year-old female with a long history of bilateral knee pain discomfort. She underwent a left knee replacement 4 to 5 years ago and struggled initially but eventually did okay. She developed increased pain discomfort in her right knee patient would put this off as long as possible but now requiring a cane to get around due to her pain. She failed conservative measures. X-rays show advanced right knee tricompartment DJD. She elected proceed with surgical treatment. The patient had diffuse osteopenia and therefore we used a slightly extended stem on the tibia and cemented this to try to maximize her tibial stability. Description of Procedure Operative implants consist of: 1 Biomet Vanguard size 70 right posterior stabilized femoral component. 2. Biomet size 71 tibial tray with an 80 x 10 mm extension. 3. 12 mm posterior stabilized polyethylene insert. 4. 31 x 8 all polypatella. The patient was taken to the operating, identified, placed on the operating table supine position with all contractors were properly padded. IV antibiotics tried by anesthesia team. A spinal anesthetic and abductor canal block had provided holding area. Sue catheter was placed in sterile fashion. A right thigh turn was then placed in the right lower extremities and prepped and draped in usual sterile fashion. The right leg was elevated exsanguinated with use of an Esmarch and turns placed at 3 mmHg. An anterior approach to the right knee was then performed to longitudinal incision centered over the patella. Sharp dissection was carried through subcutaneous tissue down the extensor mechanism. A medial parapatellar arthrotomy incision was made. Some subperiosteal dissection was carried out medially. The fat pad was resected beneath patella tendon. Lateral patellofemoral ligament was released. Patella subluxated laterally and the knee was flexed. The osteophytes were taken off distal femur P the ACL and PCL then released from distal femur the tibia subluxated anteriorly. The external tibial alignment jig was then placed in the interface the tibia and adjusted 14 mm medially. Proximal tibial cut was made remove about 2 mm of bone from the most deficient aspect medial tibial plateau. The tibia was then sized to a size 71. Attention drawn the femur. The distal femur examined with a sharp drop with intramedullary canal was suction. A right 5 degree distal femoral cutting block was then placed. The distal femoral cutting block was pinned in place and adjusted. At the cut was made to take an additional 3 mm of bone off distal femur. Femur was then sized to a size 70. M the AP cutting block was pinned parallel to the epicondylar axis which was 3 degrees of external rotation. Anterior cut, anterior chamfer, posterior cut, posterior chamfer cuts were made. The box cutting guide was placed in just slight lateral box cut was made. The knee was flexed. The remnants of the medial and lateral menisci were excised. The osteophyte taken off the posterior aspect the femur. A trial femoral component was placed. The tibial tray was then pinned in place. The drill and stem punch were used to create defect in proximal tibia for the tibial tray. I then did reamed up for this extension on the tibia up to a size 12 reamer. The tibial tray was then placed and fit nicely. I trialed the knee and the 12 mm insert fit most appropriately. Attention drawn the patella. Knee by the patella was cleaned of all soft tissues. Patella thickness measured 22 mm in thickness was cut down to 14. It was sized to a size 31 patella. The lug holes were drilled for the 31 patella. The lateral osteophyte is moved. Patella button was placed. Knee was taken through range of motion and patella tracked nicely with no thumbs test. Attention drawn to place the permanent components. All trial components were removed. Bone plug was placed in the distal femur limit blood loss. Double batch [place] G cement was mixed. A Biomet Vanguard size 70 right posterior stabilized femoral component. A size 71 tibial tray with an 80 x 10 mm extension, 812 mm posterior stabilized polyethylene insert, and a 31 x 8 all polypatella were then cemented in place. I used the stem extension and cemented this in order to maximize her stability due to her osteopenia. The knee was brought out in full extension total cement hardened. Final cement check was then performed. Pericapsular tissues were injected with total 100 cc of combination of 20 cc of Exparel, 30 cc normal saline, 50 cc of quarter percent Marcaine with epinephrine. Patient did receive 1 g tranexamic acid per the tourniquet was then let down for final tourniquet time of 62 minutes. Hemostasis assured use electrocautery. The wound was once again irrigated. The extensor mechanism closed with combination 1 PDS suture #1 Vicryl suture in [id number] fashion. Extensor mechanism checked found to be intact with subcutaneous tissue then closed with 2 Dexon suture in a buried interrupted fashion skin was closed skin domo. Leg was then cleaned and dried a sterile dressing applied Xeroform, 4 x 4's, sterile cast padding, Clovis bandage were applied. Patient then transferred to the recovery room in stable condition. Patient tolerated procedure well and there were no complications. Henri Phillisp, my physician project administrative assistant, was present for the entire procedure. His assistance was essential and required for appropriate patient positioning, prepping and draping, surgical exposure, performing the technical details of the operation, placement the implants, closure of the wound, and placement of the sterile bandage. I attest to the content of the Intraoperative Record and any orders documented therein. Any exceptions are noted below.
[2021-06-21] MEDS: VANCOMYCIN HCL 1,500 MG in SODIUM CHLORIDE 0.9% 500 ML IV SCH (20:29)
[2021-06-21] MEDS: DOCUSATE SODIUM 100 MG CAP PO SCH (20:36)
[2021-06-21] MEDS: ASPIRIN 81 MG ECTAB PO SCH (20:36)
[2021-06-21] MEDS: TAPENTADOL HCL ER 50 MG TABCR PO SCH (20:40)
[2021-06-21] MEDS ORDERED: SENNA 8.6 MG TAB PO SCH (21:00)
[2021-06-21] MEDS ORDERED: ROSUVASTATIN CALCIUM 10 MG TAB PO SCH (21:00)
[2021-06-21] MEDS ORDERED: INSULIN GLARGINE SOLOSTAR 100 UNITS/ML 3 ML PEN SC ONE (21:00)
[2021-06-22] MEDS: KETOROLAC TROMETHAMINE 15 MG/ML VIAL IV SCH ×3 (01:35→14:16)
[2021-06-22] MEDS: SODIUM CHLORIDE 0.9% 1000ML 1,000 ML IV SCH (05:39)
[2021-06-22] MEDS: ACETAMINOPHEN 500 MG TAB PO SCH ×2 (05:45→14:16)
[2021-06-22 05:55] LABS: Hematocrit (blood only) 31.9 % (37-47); Hemoglobin 10.2 g/dL (12.0-16.0); Mean Corpuscular Hemoglobin 28.7 pg (25-34); Mean Corpuscular Volume 89.6 fL (80-100); Mean Platelet Volume 9.3 fL (7.4-10.4); Platelet Count 194 K/uL (130-400); RDW Coefficient of Variation 13.6 % (11.5-14.5); RDW Standard Deviation 44.9 fL (36.4-46.3); Red Blood Count 3.56 M/uL (4.2-5.4); White Blood Count 7.21 K/uL (4.8-10.8)
[2021-06-22 06:26] LABS: BUN Creatinine Ratio 19.5 (10-20); Calcium 7.5 mg/dl (8.5-10.1); Est GFR (African American) 114.4 ml/min; Est GFR (Non-African American) 98.7 ml/min; Potassium 3.6 mmol/L (3.5-5.1)
[2021-06-22] MEDS: ASCORBIC ACID 500 MG TAB PO SCH (08:22)
[2021-06-22] MEDS: DOCUSATE SODIUM 100 MG CAP PO SCH (08:23)
[2021-06-22] MEDS: ASPIRIN 81 MG ECTAB PO SCH (08:24)
[2021-06-22] MEDS: Scopolamine CHECK PATCH PLACEMENT SCH ×2 (08:24→16:00)
[2021-06-22] MEDS: TAPENTADOL HCL ER 50 MG TABCR PO SCH (08:33)
[2021-06-22] MEDS: VANCOMYCIN HCL 1,500 MG in SODIUM CHLORIDE 0.9% 500 ML IV SCH (08:33)
[2021-06-22] MEDS: INSULIN ASPART 100 UNITS/ML 3 ML PEN SC SCH ×2 (08:40→12:41)
[2021-06-22] MEDS ORDERED: CYANOCOBALAMIN 500 MCG TABLET (VITAMIN B-12) PO SCH (09:00)
[2021-06-22] MEDS ORDERED: FERROUS SULFATE 325 MG TAB PO SCH (09:00)
[2021-06-22] MEDS ORDERED: CHOLECALCIFEROL 1,000 UNITS 25 MCG TAB PO SCH (09:00)
[2021-06-22] MEDS ORDERED: MULTIVITAMIN TAB PO SCH (09:00)
--- NOTE | 2021-06-22 14:10 | Pharmacy Report ---
Pharmacy Glycemic Short Note 2 - Date of Service June 22, 2021 - Glycemic Short BSG Results (Last 24 hours): 06/21/21 06/21/21 06/22/21 17:12 20:57 05:35 Glucose 101 H POC Glucose 137 H 190 H 06/22/21 06/22/21 08:24 12:10 Glucose POC Glucose 89 81 OUTPATIENT ANTIDIABETIC REGIMEN: * METFORMIN 500 MG ER QAM * a1c 5.7% 05/03/21 ASSESSMENT: 06/22: * Patient received total of 13 units insulin yesterday; 10 units of basal and 3 units bolus. * Patient refused insulin at dinner yesterday and at breakfast today. * Fasting BSG this AM at goal = 89 mg/dl. Basal insulin was ordered yesterday to prevent steroid induced hyperglycemia from IV Dex given in OR. Plan not to continue anymore basal. * HS BSG was slightly high at 190 mg/dl most likely d/t the IV Dex given in the AM. * Pre-lunch BSG at goal = 81 mg/dl today. Removed carb ratio. * Since patient is eating and renal function is good, home Metformin resumed starting tomorrow AM. 06/21: * Admitted POD #0 right total knee arthroplasty * BSGs 99-102 mg/dL preop, a1c 5.7% on metformin, do not anticipate high insulin needs, will start novolog between weight based stress of 2 and 3 * Will put on scale for lantus if needed PLAN FOR INPATIENT GLYCEMIC CONTROL: * Metformin 500 mg ER QAM starting tomorrow AM. * Basal insulin * None * Bolus insulin: removed CR * NovoLog per scale ACHS or Q6hrs while NPO * Goal Range: Low 110 mg/dL - High 140 mg/dL * Correction Factor: 20 mg/dL/unit * Nutritional / Prandial insulin per carb ratio of 1 unit per __ grams CHO consumed
--- NOTE | 2021-06-22 15:50 | Progress Notes ---
DATE OF SERVICE: 06/22/2021 SUBJECTIVE: A 71-year-old white female postop day 1 from right knee replacement. She is doing prett y well. Therapy went well. Pain is controlled. No chest pain or shortness of breath. Not feeling dizzy or lightheaded. She was hoping to go to [facility] but got denied. OBJECTIVE: VITAL SIGNS: Temperature 36.9. Vital signs are stable. PHYSICAL EXAMINATION: GENERAL: Shows a pleasant middle-aged female. She is sitting up in her bedside chair, looks pretty comfortable. EXTREMITIES: Examination of the right leg reveals the dressing to be clean, dry and intact. Leg is well aligned. She can dorsiflex and plantarflex her foot appropriately. NEUROLOGIC: She is neurologically intact. LABORATORY DATA: Hemoglobin 10.2. Hematocrit 31.9. Electrolytes are stable. ASSESSMENT: A 71-year-old female postoperative day 1 from right knee replacement, doing pretty well. Pain has been controlled. Therapy went well. She is neurologically intact. PLAN: 1. DVT prophylaxis includes thigh-high TEDs, SCDs, aspirin twice a day. 2. PT, OT, weightbear as tolerated. Right total knee protocol. 3. Pain control, doing well with current pain regimen. 4. Disposition: Plan to discharge to home with some home health at her request. She is hoping to g o home and has a friend that is going to stay with her. Job ID: [id number]
[2021-06-23] MEDS ORDERED: metFORMIN HCL ER 500 MG TABCR PO SCH (07:30)
== END 2021-06-22 17:48 | disposition home health service (06) ==
LOC: ASU 06:22 → 3E 06:22
DX: M81.0 Age-related osteoporosis without current pathological fracture; Z96.652 Presence of left artificial knee joint; Z88.1 Allergy status to other antibiotic agents; R73.03 Prediabetes; Z79.84 Long term (current) use of oral hypoglycemic drugs; M17.11 Unilateral primary osteoarthritis, right knee; Z79.899 Other long term (current) drug therapy; Z88.8 Allergy status to other drugs, medicaments and biological substances; Z68.38 Body mass index [BMI] 38.0-38.9, adult; Z98.84 Bariatric surgery status; Z20.822 Contact with and (suspected) exposure to COVID-19; E66.9 Obesity, unspecified